=== PATIENT | female | born 1955 | race Caucasian/White ===

== ENCOUNTER 2022-10-29 11:17 | Day surgery (SDC) | payer MEDICARE, OTHER ==
[2022-10-29] VITALS (7 sets, daily range): BP systolic 154–169; BP diastolic 78–102
[~2022-10-29] VITALS: Ht 167.6 cm; Wt 73.2 kg
[2022-10-29] MEDS ORDERED: ASPI-611 PO (11:53)
[2022-10-29] MEDS ORDERED: ATEN50TA8 PO (11:53)
[2022-10-29] MEDS ORDERED: ROSU10TA2 PO (11:53)
[2022-10-29] MEDS ORDERED: LOSA25TA96 PO (11:53)
[2022-10-29 11:58] LABS: BASOPHILS % (AUTO) 0.3 % (0-1); EOSINOPHILS % (AUTO) 0.6 % (0-6); HEMATOCRIT 36.2 % (35.0-45.0); HEMOGLOBIN 12.4 g/dl (12.0-16.0); LYMPHOCYTES # (AUTO) 1.4 X10'3 (1.1-4.8); LYMPHOCYTES % (AUTO) 21.9 % (21-51); MEAN CORPUSCULAR HEMOGLOBIN 33.2 PG (27.0-31.0); MEAN CORPUSCULAR HGB CONC 34.4 g/dL (33.0-36.5); MEAN CORPUSCULAR VOLUME 96.4 FL (78-98); MEAN PLATELET VOLUME 8.2 FL (7.4-10.4); MONOCYTES # (AUTO) 0.4 X10'3 (0-0.9); MONOCYTES % (AUTO) 7.2 % (2-12); NEUTROPHILS # (AUTO) 4.3 X10'3 (1.8-7.7); PLATELET COUNT 158 X10'3 (140-440); RED BLOOD COUNT 3.75 X10'6 (4.20-5.60); RED CELL DISTRIBUTION WIDTH 13.3 % (11.5-14.5); WHITE BLOOD COUNT 6.2 X10'3 (4.5-11.0)
[2022-10-29] MEDS ORDERED: fentaNYL/PF 50MCG/1 ML 2ML syringe ONE (12:31)
[2022-10-29] MEDS ORDERED: midazolam 1 mg/ML 2ml injection ONE (12:31)
[2022-10-29] MEDS ORDERED: heparin sodium, porcine/PF 100unit/ml 5ML syringe ONE (12:31)
== END 2022-10-29 14:50 | disposition home or self-care (01) ==
LOC: SSTAY O 11:17
PROVIDERS: ATTEND Radiology Diagnostic Radiology
DX: C50.211 Malignant neoplasm of upper-inner quadrant of right female breast (principal); I10 Essential (primary) hypertension; E78.00 Pure hypercholesterolemia, unspecified; I25.10 Atherosclerotic heart disease of native coronary artery without angina pectoris; Z98.890 Other specified postprocedural states; Z95.5 Presence of coronary angioplasty implant and graft; Z79.82 Long term (current) use of aspirin; Z79.899 Other long term (current) drug therapy; Z88.8 Allergy status to other drugs, medicaments and biological substances; Z87.891 Personal history of nicotine dependence
CPT/HCPCS: 36415; 36561; 76937; 77001; 85025; 85610; 99152; 99153; C1769; C1788; C1894; J1642; J2250; J3010; J7030; A4620

== ENCOUNTER 2024-09-18 23:29 | Inpatient (IN) | payer MEDICARE, OTHER ==
[~2024-09-18] VITALS: Ht 167.6 cm; Wt 68.9 kg
[~2024-09-18 23:29] MED LIST: ASPI-611 PO; ATEN50TA8 PO; LOSA-415 PO; ROSU10TA2 PO
[2024-09-19] VITALS (14 sets, daily range): BP systolic 101–145; BP diastolic 63–83; PULSE 59–76; RESP 13–19; TEMP 97.4–98.4; O2SAT 93–96
[2024-09-19] MEDS: MESSAGE TO NURSING IV ONE ×3 (00:30→10:17)
[2024-09-19] MEDS: heparin 25,000 UNIT/250ml bag 250 ML IV PRN (00:38)
[2024-09-19] MEDS ORDERED: nitroGLYCERIN 0.4mg SUBLingual tab SL PRN ×2 (01:20→02:40)
[2024-09-19] MEDS: nitroGLYCERIN 0.4mg SUBLingual tab SL ONE (01:23)
[2024-09-19] MEDS ORDERED: magnesium Cl slow-release 64mg tablet PO PRN (02:30)
[2024-09-19] MEDS ORDERED: potassium Cl 20 mEq SR tablet PO PRN ×3 (02:30→19:00)
[2024-09-19] MEDS ORDERED: magnesium hydroxide 30ml (MOM) UD suspension PO PRN (02:30)
[2024-09-19] MEDS ORDERED: potassium Cl 40MEQ/1/2NS 520ml 520 ML IV PRN ×2 (02:30→19:00)
[2024-09-19] MEDS ORDERED: normal saline 1000ml 1,000 ML IV SCH (02:30)
[2024-09-19] MEDS ORDERED: magnesium sulf-water 4G/100mL 100 ML IV PRN ×2 (02:30→19:00)
[2024-09-19] MEDS ORDERED: acetaminophen 325mg tablet PO PRN (02:30)
[2024-09-19] MEDS ORDERED: morphine 2 MG/ML inj. syringe IV PRN ×2 (02:30)
[2024-09-19] MEDS ORDERED: mag hydrox/Alum hydrox/simeth 30ml oral suspension PO PRN (02:30)
[2024-09-19] MEDS ORDERED: magnesium sulf-water 2g/50mL 50 ML IV PRN ×2 (02:30→19:00)
[2024-09-19] MEDS ORDERED: ondansetron/PF 4mg/2ml inj IV PRN ×2 (02:30→18:20)
[2024-09-19 03:03] LABS: BASOPHILS % (AUTO) 0.3 % (0-1); EOSINOPHILS % (AUTO) 0.6 % (0-6); HEMATOCRIT 34.2 % (35.0-45.0); HEMOGLOBIN 12.1 g/dl (12.0-16.0); LYMPHOCYTES # (AUTO) 1.5 X10'3 (1.1-4.8); LYMPHOCYTES % (AUTO) 24.7 % (21-51); MEAN CORPUSCULAR HEMOGLOBIN 38.2 PG (27.0-31.0); MEAN CORPUSCULAR HGB CONC 35.5 g/dL (33.0-36.5); MEAN CORPUSCULAR VOLUME 107.6 FL (78-98); MEAN PLATELET VOLUME 8.7 FL (7.4-10.4); MONOCYTES # (AUTO) 0.6 X10'3 (0-0.9); MONOCYTES % (AUTO) 9.7 % (2-12); NEUTROPHILS # (AUTO) 3.8 X10'3 (1.8-7.7); NEUTROPHILS % (AUTO) 64.7 % (42-75); PLATELET COUNT 136 X10'3 (140-440); RED BLOOD COUNT 3.17 X10'6 (4.20-5.60); RED CELL DISTRIBUTION WIDTH 13.4 % (11.5-14.5); WHITE BLOOD COUNT 5.9 X10'3 (4.5-11.0)
[2024-09-19 03:11] LABS: INR 1.1 INR
[2024-09-19 03:24] LABS: ALANINE AMINOTRANSFERASE 34 U/L (12-78); ALBUMIN 3.6 G/DL (3.4-5.0); ALBUMIN/GLOBULIN RATIO 1.2 (1.1-1.5); ALKALINE PHOSPHATASE 108 IU/L (46-116); ANION GAP 6 (8-16); ASPARTATE AMINO TRANSFERASE 92 U/L (10-37); BILIRUBIN,TOTAL 0.7 MG/DL (0.1-1.0); BLOOD UREA NITROGEN 5 MG/DL (7-18); BUN/CREATININE RATIO 6.5 (10.0-20.0); CALCIUM 8.3 MG/DL (8.5-10.1); CHLORIDE 108 MMOL/L (99-107); CREATININE 0.77 MG/DL (0.40-0.90); GLUCOSE 114 MG/DL (70-104); POTASSIUM 3.6 MMOL/L (3.5-5.1); SODIUM 143 MMOL/L (135-145); TOTAL CARBON DIOXIDE 28.6 MMOL/L (24-32); TOTAL PROTEIN 6.5 G/DL (6.4-8.2); eCRCL 66 ML/MIN; eGFR 75 ML/MIN
[2024-09-19 03:25] LABS: CHOL/HDL RATIO 3.7 (0.00-4.99); CHOLESTEROL 331 MG/DL (0-200); HDL CHOLESTEROL 89 MG/DL (35-60); LDL CHOLESTEROL 203 MG/DL (50-100); MAGNESIUM 1.9 MG/DL (1.5-2.4); PHOSPHORUS 3.6 MG/DL (2.3-4.5); PRO BRAIN NATRIURETIC PEPTIDE 1500 PG/ML (0-125); THYROID STIMULATING HORMONE 0.83 ulU/ml (0.34-4.50); TRIGLYCERIDES 160 MG/DL (20-135)
[2024-09-19 03:28] LABS: HEMOGLOBIN A1C 5.2 % (4.5-6.2)
[2024-09-19] MEDS ORDERED: ANAS1TAB10 PO (04:21)
[2024-09-19] MEDS ORDERED: ABEM100T PO (04:21)
[2024-09-19 04:33] LABS: PROTHROMBIN TIME 10.9 SECONDS (9.0-12.0)
[2024-09-19 04:47] LABS: APTT 101 SECONDS (22-32)
[2024-09-19] MEDS ORDERED: atorvastatin 20mg tablet PO SCH (08:00)
[2024-09-19] MEDS: K and/or MAG REPLACEMENT MC SCH (08:00)
[2024-09-19] MEDS: aspirin 81mg, enteric-coated 1 TAB TABLET.DR PO SCH (08:00)
[2024-09-19] MEDS: docusate sod 100mg capsule PO SCH (08:00)
[2024-09-19] MEDS: heparin 10,000 units/1 ML INJ IV PRN (10:12)
[2024-09-19] MEDS: ezetimibe 10mg tablet PO SCH (10:26)
[2024-09-19] MEDS: atenolol 50mg tablet PO SCH (10:29)
[2024-09-19] MEDS ORDERED: heparin 25,000 UNIT/250ml bag 250 ML IV PRN (10:51)
[2024-09-19] MEDS: ABEMACICLIB 100 MG PO SCH (13:18)
[2024-09-19] MEDS ORDERED: LIDOcaine 1% 30ml preserv. free vial ONE (16:13)
[2024-09-19] MEDS ORDERED: verapamil 2.5 mg/ml inj IV ONE (16:13)
[2024-09-19] MEDS ORDERED: fentaNYL/PF 50MCG/1 ML 2ML syringe ONE (16:14)
[2024-09-19] MEDS ORDERED: iohexol 350MG/ML 100ml bottle IV ONE (16:14)
[2024-09-19] MEDS ORDERED: heparin 1,000unit/ml 10ml vial 10 ML ONE (16:14)
[2024-09-19] MEDS ORDERED: midazolam 1 mg/ML 2ml injection ONE (16:14)
[2024-09-19] MEDS ORDERED: nitroGLYCERIN 500mcg/5mL D5W 5 ML IV ONE (16:20)
[2024-09-19] MEDS ORDERED: OXAZEpam 15mg capsule PO PRN (18:20)
[2024-09-19] MEDS ORDERED: HYDROcodone/acetaminophen 10/325mg tab PO PRN (18:20)
[2024-09-19] MEDS ORDERED: proCHLORperazine 10 MG/2 ml inj IV PRN (18:20)
[2024-09-19] MEDS ORDERED: HYDROcodone/acetaminophen 5mg/325mg tablet PO PRN (18:20)
[2024-09-19] MEDS ORDERED: potassium Cl 20mEq/100mL bag 100 ML IV PRN (19:00)
[2024-09-19] MEDS ORDERED: potassium Cl 40MEQ/270ML bag 250 ML IV PRN (19:00)
[2024-09-19] MEDS: MESSAGE TO NURSING PO ONE ×4 (19:00)
[2024-09-19] MEDS ORDERED: potassium CL 10mEq/100ml bag 100 ML IV PRN (19:00)
[2024-09-19 20:37] LABS: INR 1.1 INR
[2024-09-19 20:50] LABS: APTT 71 SECONDS (22-32)
[2024-09-20] VITALS (28 sets, daily range): BP systolic 95–135; BP diastolic 45–83; PULSE 63–94; RESP 12–19; TEMP 98.8; O2SAT 92–100
[2024-09-20 00:05] LABS: ABG BASE EXCESS 3.5 mmol/L (-2.0-3.0); ABG HCO3 27.2 mmol/L (21.0-28.0); ABG OXYGEN SATURATION 95.4 % (94.0-98.0); ABG PCO2 (T) 38.3 mmHg (32.0-45.0); ABG PO2 (T) 79.4 mmHg (83.0-108.0); ALLEN'S TEST POSITIVE; FCOHb 0.3 % (0.5-1.5); FHHb 4.6 % (0.0-5.0); FMetHb 0.3 % (0.0-1.5); FO2Hb 94.8 % (94.0-98.0); MODE ROOM AIR; TOTAL HEMOGLOBIN 12.5 G/dl (12.0-16.0)
[2024-09-20] MEDS: mupirocin 2% nasal ointment 1gm UD NS ONE ×2 (05:19→07:08)
[2024-09-20 05:23] LABS: BASOPHILS % (AUTO) 0.6 % (0-1); EOSINOPHILS % (AUTO) 0.5 % (0-6); HEMATOCRIT 35.5 % (35.0-45.0); HEMOGLOBIN 12.4 g/dl (12.0-16.0); LYMPHOCYTES # (AUTO) 1.3 X10'3 (1.1-4.8); LYMPHOCYTES % (AUTO) 25.9 % (21-51); MEAN CORPUSCULAR HEMOGLOBIN 37.6 PG (27.0-31.0); MEAN CORPUSCULAR VOLUME 107.3 FL (78-98); MEAN PLATELET VOLUME 8.3 FL (7.4-10.4); MONOCYTES # (AUTO) 0.6 X10'3 (0-0.9); MONOCYTES % (AUTO) 12.5 % (2-12); NEUTROPHILS # (AUTO) 3.1 X10'3 (1.8-7.7); NEUTROPHILS % (AUTO) 60.5 % (42-75); PLATELET COUNT 136 X10'3 (140-440); RED BLOOD COUNT 3.31 X10'6 (4.20-5.60); RED CELL DISTRIBUTION WIDTH 13.5 % (11.5-14.5); WHITE BLOOD COUNT 5.1 X10'3 (4.5-11.0)
[2024-09-20 05:39] LABS: ALANINE AMINOTRANSFERASE 35 U/L (12-78); ALBUMIN 3.4 G/DL (3.4-5.0); ALBUMIN/GLOBULIN RATIO 1.1 (1.1-1.5); ALKALINE PHOSPHATASE 107 IU/L (46-116); ANION GAP 12 (8-16); ASPARTATE AMINO TRANSFERASE 91 U/L (10-37); BILIRUBIN,TOTAL 0.9 MG/DL (0.1-1.0); BLOOD UREA NITROGEN 9 MG/DL (7-18); BUN/CREATININE RATIO 12.5 (10.0-20.0); CALCIUM 9.3 MG/DL (8.5-10.1); CHLORIDE 104 MMOL/L (99-107); CREATININE 0.72 MG/DL (0.40-0.90); GLUCOSE 109 MG/DL (70-104); MAGNESIUM 1.8 MG/DL (1.5-2.4); PHOSPHORUS 3.4 MG/DL (2.3-4.5); SODIUM 141 MMOL/L (135-145); TOTAL CARBON DIOXIDE 25.1 MMOL/L (24-32); TOTAL PROTEIN 6.5 G/DL (6.4-8.2); eCRCL 71 ML/MIN; eGFR 81 ML/MIN
[2024-09-20 06:03] LABS: POTASSIUM 3.5 MMOL/L (3.5-5.1)
[2024-09-20] MEDS ORDERED: epiNEPHrine 1 mg/ml inj ONE (06:52)
[2024-09-20] MEDS ORDERED: vancomycin 1,000mg inj ONE (06:52)
[2024-09-20] MEDS ORDERED: ceFAZolin 1000mg inj ONE (06:52)
[2024-09-20] MEDS ORDERED: BUPIVAcaine 0.5% inj/PF 30 ML ONE (06:53)
[2024-09-20] MEDS ORDERED: LORazepam 2 mg/ml vial ONE (07:06)
[2024-09-20] MEDS: atenolol 50mg tablet PO SCH (07:09)
[2024-09-20] MEDS: vancomycin/NS 1 GM ADD-VANTAGE 250 ML IV ONE (07:30)
[2024-09-20] MEDS: Insulin Reg/NS 100units/100mL 100 ML IV SCH ×2 (07:45→18:16)
[2024-09-20] MEDS ORDERED: dextrose 50%-water 50ml dispensing syringe IV PRN ×2 (07:45→10:30)
[2024-09-20] MEDS ORDERED: insulin glargine (Lantus) pen - multi-dose SQ PRN ×2 (07:45→10:30)
[2024-09-20] MEDS: ringers solution, lacted 1,000 ML IV ONE (07:50)
[2024-09-20] MEDS ORDERED: albuterol 2.5 MG/3 ML nebule NEB PRN (07:50)
[2024-09-20] MEDS ORDERED: isoflurane 100ml inhalation liquid IH ONE (07:52)
[2024-09-20] MEDS ORDERED: midazolam 1 mg/ML 2ml injection ONE (07:57)
[2024-09-20] MEDS ORDERED: SUfentanil 50mcg/ml 1ml amp IV ONE (07:59)
[2024-09-20] MEDS ORDERED: non-formulary drug (Aspirin (Aspir 81) 1 TAB) PO SCH (08:00)
[2024-09-20] MEDS: ceFAZolin 2gm in dextrose, iso 50 ML IV ONE (08:00)
[2024-09-20] MEDS ORDERED: propofol inj 20 ML IV ONE (08:11)
[2024-09-20] MEDS ORDERED: LIDOcaine 2% (20mg/ml) 5ml vial ONE (08:11)
[2024-09-20 08:34] LABS: ABG BASE EXCESS -0.1 mmol/L (-2.0-3.0); ABG HCO3 22.4 mmol/L (21.0-28.0); ABG OXYGEN SATURATION 99.2 % (94.0-98.0); ABG PCO2 29.6 mmHg (32.0-45.0); ABG PH 7.497 (7.350-7.450); ABG PO2 254.2 mmHg (83.0-108.0); CL (ABG) 103 mmol/L (98-107); FCOHb 0.3 % (0.5-1.5); FHHb 0.8 % (0.0-5.0); FO2Hb 98.9 % (94.0-98.0); GLUCOSE (ABG) 94 mg/dl (65-95); IONIZED CA (ABG) 1.17 mmol/L (1.15-1.33); K (ABG) 3.4 mmol/L (3.40-4.50); TOTAL HEMOGLOBIN 10.8 G/dl (12.0-16.0)
[2024-09-20 09:16] LABS: ABG BASE EXCESS 3.4 mmol/L (-2.0-3.0); ABG HCO3 26.7 mmol/L (21.0-28.0); ABG OXYGEN SATURATION 99.4 % (94.0-98.0); ABG PCO2 34.9 mmHg (32.0-45.0); ABG PH 7.502 (7.350-7.450); CL (ABG) 97 mmol/L (98-107); FCOHb 0.1 % (0.5-1.5); FHHb 0.6 % (0.0-5.0); FMetHb 0.1 % (0.0-1.5); FO2Hb 99.2 % (94.0-98.0); GLUCOSE (ABG) 95 mg/dl (65-95); IONIZED CA (ABG) 0.91 mmol/L (1.15-1.33); K (ABG) 3.6 mmol/L (3.40-4.50); TOTAL HEMOGLOBIN 7.3 G/dl (12.0-16.0)
[2024-09-20] MEDS: MESSAGE TO NURSING PO ONE (09:32)
[2024-09-20] MEDS: ceFAZolin 1000mg inj IR ONE (09:41)
[2024-09-20 09:46] LABS: ABG BASE EXCESS 2.3 mmol/L (-2.0-3.0); ABG HCO3 26.4 mmol/L (21.0-28.0); ABG OXYGEN SATURATION 99.3 % (94.0-98.0); ABG PCO2 38.9 mmHg (32.0-45.0); CL (ABG) 100 mmol/L (98-107); FCOHb 0.3 % (0.5-1.5); FHHb 0.7 % (0.0-5.0); GLUCOSE (ABG) 124 mg/dl (65-95); IONIZED CA (ABG) 1.05 mmol/L (1.15-1.33); K (ABG) 3.8 mmol/L (3.40-4.50); TOTAL HEMOGLOBIN 8.4 G/dl (12.0-16.0)
[2024-09-20 10:21] LABS: ABG BASE EXCESS -2.1 mmol/L (-2.0-3.0); ABG OXYGEN SATURATION 99.2 % (94.0-98.0); ABG PCO2 34.7 mmHg (32.0-45.0); ABG PO2 247.2 mmHg (83.0-108.0); CL (ABG) 101 mmol/L (98-107); FCOHb 0.3 % (0.5-1.5); FHHb 0.8 % (0.0-5.0); FO2Hb 98.9 % (94.0-98.0); GLUCOSE (ABG) 128 mg/dl (65-95); IONIZED CA (ABG) 1.06 mmol/L (1.15-1.33); K (ABG) 3.6 mmol/L (3.40-4.50); TOTAL HEMOGLOBIN 8.4 G/dl (12.0-16.0)
[2024-09-20] MEDS ORDERED: metoclopramide 5 mg/ml inj IV PRN (10:30)
[2024-09-20] MEDS ORDERED: niCARDipine-NS 40mg/200ml IVPB 200 ML IV PRN (10:30)
[2024-09-20] MEDS ORDERED: acetaminophen 325mg tablet PO PRN ×2 (10:30)
[2024-09-20] MEDS ORDERED: mineral oil 133ml enema RC PRN (10:30)
[2024-09-20] MEDS ORDERED: magnesium hydroxide 30ml (MOM) UD suspension PO PRN (10:30)
[2024-09-20] MEDS ORDERED: bisacodyl 10mg suppository rectal RC PRN (10:30)
[2024-09-20] MEDS: nitroGLYCERIN-Tridil 50MG/D5W 250 ML IV SCH (10:30)
[2024-09-20] MEDS ORDERED: sodium phosphate inj. 15 MMOL in dextrose 5%-water 250 ML IV PRN (10:30)
[2024-09-20] MEDS ORDERED: sodium phosphate inj. 30 MMOL in dextrose 5%-water 250 ML IV PRN (10:30)
[2024-09-20] MEDS ORDERED: potassium Cl 40MEQ/1/2NS 520ml 520 ML IV PRN (10:30)
[2024-09-20] MEDS ORDERED: potassium Cl 20 mEq SR tablet PO PRN (10:30)
[2024-09-20] MEDS ORDERED: potassium CL 10mEq/100ml bag 100 ML IV PRN (10:30)
[2024-09-20] MEDS ORDERED: Neutra Phos packet PO PRN (10:30)
[2024-09-20] MEDS ORDERED: morphine 4 MG/ML inj SYRINge ONE (10:44)
[2024-09-20 11:14] LABS: BASOPHILS % (AUTO) 0.4 % (0-1); EOSINOPHILS % (AUTO) 0.3 % (0-6); HEMATOCRIT 24.9 % (35.0-45.0); HEMOGLOBIN 8.8 g/dl (12.0-16.0); LYMPHOCYTES # (AUTO) 0.8 X10'3 (1.1-4.8); LYMPHOCYTES % (AUTO) 20.3 % (21-51); MEAN CORPUSCULAR HEMOGLOBIN 37.7 PG (27.0-31.0); MEAN CORPUSCULAR HGB CONC 35.4 g/dL (33.0-36.5); MEAN CORPUSCULAR VOLUME 106.5 FL (78-98); MEAN PLATELET VOLUME 7.8 FL (7.4-10.4); MONOCYTES # (AUTO) 0.3 X10'3 (0-0.9); MONOCYTES % (AUTO) 6.6 % (2-12); NEUTROPHILS # (AUTO) 2.8 X10'3 (1.8-7.7); NEUTROPHILS % (AUTO) 72.4 % (42-75); PLATELET COUNT 68 X10'3 (140-440); RED BLOOD COUNT 2.34 X10'6 (4.20-5.60); RED CELL DISTRIBUTION WIDTH 13.3 % (11.5-14.5); WHITE BLOOD COUNT 3.9 X10'3 (4.5-11.0)
[2024-09-20] MEDS: albumin (Human) 5% 250ml 250 ML IV PRN (11:25)
[2024-09-20 11:34] LABS: APTT 26 SECONDS (22-32); INR 1.2 INR; PROTHROMBIN TIME 12.3 SECONDS (9.0-12.0)
[2024-09-20 11:36] LABS: ALANINE AMINOTRANSFERASE 25 U/L (12-78); ALBUMIN 2.7 G/DL (3.4-5.0); ALBUMIN/GLOBULIN RATIO 1.5 (1.1-1.5); ALKALINE PHOSPHATASE 69 IU/L (46-116); ANION GAP 7 (8-16); ASPARTATE AMINO TRANSFERASE 67 U/L (10-37); BLOOD UREA NITROGEN 7 MG/DL (7-18); BUN/CREATININE RATIO 12.1 (10.0-20.0); CALCIUM 7.5 MG/DL (8.5-10.1); CHLORIDE 107 MMOL/L (99-107); CREATININE 0.58 MG/DL (0.40-0.90); GLUCOSE 137 MG/DL (70-104); MAGNESIUM 1.5 MG/DL (1.5-2.4); PHOSPHORUS 2.8 MG/DL (2.3-4.5); POTASSIUM 3.7 MMOL/L (3.5-5.1); SODIUM 141 MMOL/L (135-145); TOTAL CARBON DIOXIDE 26.6 MMOL/L (24-32); TOTAL PROTEIN 4.5 G/DL (6.4-8.2); eCRCL 88 ML/MIN; eGFR > 90 ML/MIN
[2024-09-20 11:40] LABS: ABG BASE EXCESS 0.9 mmol/L (-2.0-3.0); ABG HCO3 24.7 mmol/L (21.0-28.0); ABG OXYGEN SATURATION 99.4 % (94.0-98.0); ABG PCO2 (T) 33.9 mmHg (32.0-45.0); ABG PH (T) 7.475 (7.350-7.450); ABG PO2 (T) 257.8 mmHg (83.0-108.0); FCOHb 0.2 % (0.5-1.5); FHHb 0.6 % (0.0-5.0); FMetHb 0.3 % (0.0-1.5); FO2Hb 98.9 % (94.0-98.0); MODE VENT - SIMV; PATIENT TEMPERATURE 35.7; PEEP 5 cm H2O; RESPIRATORY RATE 12 b/min; TIDAL VOLUME 500 mL; TOTAL HEMOGLOBIN 9.5 G/dl (12.0-16.0)
[2024-09-20] MEDS: potassium Cl 20mEq/100mL bag 100 ML IV PRN (11:57)
[2024-09-20] MEDS: magnesium sulf-water 2g/50mL 50 ML IV PRN (11:57)
[2024-09-20] MEDS: sodium chloride 0.45% 1,000 ML IV SCH (12:32)
[2024-09-20] MEDS: potassium Cl 40MEQ/270ML bag 250 ML IV PRN (13:03)
[2024-09-20] MEDS: magnesium sulf-water 4G/100mL 100 ML IV PRN (13:22)
[2024-09-20] MEDS: ceFAZolin/D5W- 1GM premix 50 ML IV SCH (16:04)
[2024-09-20 16:54] LABS: BASOPHILS % (AUTO) 0 % (0-1); EOSINOPHILS % (AUTO) 0 % (0-6); HEMOGLOBIN 7.5 g/dl (12.0-16.0); LYMPHOCYTES # (AUTO) 0.4 X10'3 (1.1-4.8); LYMPHOCYTES % (AUTO) 8.4 % (21-51); MEAN CORPUSCULAR HEMOGLOBIN 37.2 PG (27.0-31.0); MEAN CORPUSCULAR HGB CONC 34.5 g/dL (33.0-36.5); MEAN CORPUSCULAR VOLUME 107.9 FL (78-98); MEAN PLATELET VOLUME 7.9 FL (7.4-10.4); MONOCYTES # (AUTO) 0.2 X10'3 (0-0.9); MONOCYTES % (AUTO) 3.9 % (2-12); NEUTROPHILS # (AUTO) 3.8 X10'3 (1.8-7.7); NEUTROPHILS % (AUTO) 87.7 % (42-75); PLATELET COUNT 68 X10'3 (140-440); RED BLOOD COUNT 2.02 X10'6 (4.20-5.60); RED CELL DISTRIBUTION WIDTH 13.4 % (11.5-14.5); WHITE BLOOD COUNT 4.4 X10'3 (4.5-11.0)
[2024-09-20 17:00] LABS: HEMATOCRIT 21.8 % (35.0-45.0)
[2024-09-20 17:20] LABS: ALBUMIN 3.4 G/DL (3.4-5.0); ANION GAP 7 (8-16); BLOOD UREA NITROGEN 6 MG/DL (7-18); BUN/CREATININE RATIO 9.2 (10.0-20.0); CALCIUM 7.7 MG/DL (8.5-10.1); CHLORIDE 109 MMOL/L (99-107); CREATININE 0.65 MG/DL (0.40-0.90); GLUCOSE 181 MG/DL (70-104); MAGNESIUM 3.4 MG/DL (1.5-2.4); PHOSPHORUS 3.2 MG/DL (2.3-4.5); POTASSIUM 4.2 MMOL/L (3.5-5.1); SODIUM 141 MMOL/L (135-145); TOTAL CARBON DIOXIDE 25.3 MMOL/L (24-32); eCRCL 79 ML/MIN; eGFR > 90 ML/MIN
[2024-09-20] MEDS ORDERED: VANCOMYCIN 1GM 200ML H20 (PEG) 200 ML IV SCH (20:00)
[2024-09-20 20:45] LABS: BASOPHILS % (AUTO) 0.1 % (0-1); EOSINOPHILS % (AUTO) 0 % (0-6); LYMPHOCYTES # (AUTO) 0.4 X10'3 (1.1-4.8); MONOCYTES # (AUTO) 0.2 X10'3 (0-0.9); RED BLOOD COUNT 2.03 X10'6 (4.20-5.60); RED CELL DISTRIBUTION WIDTH 13.8 % (11.5-14.5)
[2024-09-20 20:47] LABS: HEMOGLOBIN 7.6 g/dl (12.0-16.0); LYMPHOCYTES % (AUTO) 8.3 % (21-51); MEAN CORPUSCULAR HEMOGLOBIN 37.5 PG (27.0-31.0); MEAN CORPUSCULAR HGB CONC 34.9 g/dL (33.0-36.5); MEAN CORPUSCULAR VOLUME 107.3 FL (78-98); MEAN PLATELET VOLUME 7.7 FL (7.4-10.4); MONOCYTES % (AUTO) 4.2 % (2-12); NEUTROPHILS # (AUTO) 4.2 X10'3 (1.8-7.7); NEUTROPHILS % (AUTO) 87.4 % (42-75); PLATELET COUNT 68 X10'3 (140-440); WHITE BLOOD COUNT 4.8 X10'3 (4.5-11.0)
[2024-09-20 20:54] LABS: HEMATOCRIT 21.8 % (35.0-45.0)
[2024-09-20] MEDS: mupirocin 2% nasal ointment 1gm UD NS SCH (20:57)
[2024-09-20] MEDS: sennosides/docusate sodium tablet PO SCH (20:57)
[2024-09-20 20:58] LABS: ALANINE AMINOTRANSFERASE 24 U/L (12-78); ALBUMIN 3.4 G/DL (3.4-5.0); ALBUMIN/GLOBULIN RATIO 1.8 (1.1-1.5); ALKALINE PHOSPHATASE 61 IU/L (46-116); ANION GAP 5 (8-16); ASPARTATE AMINO TRANSFERASE 63 U/L (10-37); BILIRUBIN,TOTAL 0.8 MG/DL (0.1-1.0); BLOOD UREA NITROGEN 7 MG/DL (7-18); BUN/CREATININE RATIO 9.6 (10.0-20.0); CALCIUM 7.8 MG/DL (8.5-10.1); CHLORIDE 110 MMOL/L (99-107); CREATININE 0.73 MG/DL (0.40-0.90); GLUCOSE 138 MG/DL (70-104); POTASSIUM 4.3 MMOL/L (3.5-5.1); SODIUM 141 MMOL/L (135-145); TOTAL CARBON DIOXIDE 25.9 MMOL/L (24-32); TOTAL PROTEIN 5.3 G/DL (6.4-8.2); eCRCL 70 ML/MIN; eGFR 80 ML/MIN
[2024-09-20] MEDS ORDERED: atorvastatin 10mg tablet PO SCH (21:00)
[2024-09-20 21:20] LABS: ABG BASE EXCESS -1.6 mmol/L (-2.0-3.0); ABG HCO3 21.4 mmol/L (21.0-28.0); ABG OXYGEN SATURATION 95.7 % (94.0-98.0); ABG PCO2 (T) 30.4 mmHg (32.0-45.0); ABG PO2 (T) 90.3 mmHg (83.0-108.0); FCOHb 0.3 % (0.5-1.5); FHHb 4.3 % (0.0-5.0); FMetHb 0.3 % (0.0-1.5); FO2Hb 95.1 % (94.0-98.0); MODE spont; PEEP 5 cm H2O; TOTAL HEMOGLOBIN 7.9 G/dl (12.0-16.0)
[2024-09-20] MEDS: morphine 2 MG/ML inj. syringe IV PRN (21:22)
[2024-09-20] MEDS: vancomycin/NS 1 GM ADD-VANTAGE 250 ML IV SCH (21:30)
[2024-09-20] MEDS: morphine 4 MG/ML inj SYRINge IV PRN (22:32)
[2024-09-21] VITALS (25 sets, daily range): BP systolic 88–120; BP diastolic 51–80; PULSE 74–96; RESP 12–26; O2SAT 93–99
[2024-09-21 05:04] LABS: BASOPHILS % (AUTO) 0 % (0-1); EOSINOPHILS % (AUTO) 0 % (0-6); HEMATOCRIT 22.8 % (35.0-45.0); LYMPHOCYTES # (AUTO) 0.8 X10'3 (1.1-4.8); LYMPHOCYTES % (AUTO) 9.3 % (21-51); MEAN CORPUSCULAR HEMOGLOBIN 37.8 PG (27.0-31.0); MEAN PLATELET VOLUME 7.8 FL (7.4-10.4); MONOCYTES # (AUTO) 0.7 X10'3 (0-0.9); MONOCYTES % (AUTO) 9.2 % (2-12); NEUTROPHILS # (AUTO) 6.6 X10'3 (1.8-7.7); NEUTROPHILS % (AUTO) 81.5 % (42-75); PLATELET COUNT 98 X10'3 (140-440); RED BLOOD COUNT 2.11 X10'6 (4.20-5.60); WHITE BLOOD COUNT 8.1 X10'3 (4.5-11.0)
[2024-09-21 05:19] LABS: ALANINE AMINOTRANSFERASE 27 U/L (12-78); ALBUMIN 3.4 G/DL (3.4-5.0); ALBUMIN/GLOBULIN RATIO 1.7 (1.1-1.5); ALKALINE PHOSPHATASE 63 IU/L (46-116); ANION GAP 7 (8-16); ASPARTATE AMINO TRANSFERASE 64 U/L (10-37); BILIRUBIN,TOTAL 0.8 MG/DL (0.1-1.0); BLOOD UREA NITROGEN 9 MG/DL (7-18); BUN/CREATININE RATIO 14.8 (10.0-20.0); CALCIUM 8.4 MG/DL (8.5-10.1); CHLORIDE 107 MMOL/L (99-107); CREATININE 0.61 MG/DL (0.40-0.90); GLUCOSE 139 MG/DL (70-104); MAGNESIUM 2.1 MG/DL (1.5-2.4); PHOSPHORUS 3.2 MG/DL (2.3-4.5); POTASSIUM 5.1 MMOL/L (3.5-5.1); SODIUM 139 MMOL/L (135-145); TOTAL CARBON DIOXIDE 25.1 MMOL/L (24-32); TOTAL PROTEIN 5.4 G/DL (6.4-8.2); eCRCL 84 ML/MIN; eGFR > 90 ML/MIN
[2024-09-21] MEDS: metoprolol tartrate 12.5mg (1/2 tablet) PO SCH (07:14)
[2024-09-21] MEDS: aspirin 81mg tab.chew PO SCH (07:37)
[2024-09-21] MEDS: HYDROcodone/acetaminophen 10/325mg tab PO PRN ×2 (08:10→13:34)
[2024-09-21] MEDS: LIDOcaine 5% patch TP SCH (10:48)
[2024-09-21] MEDS: albumin (human) 25% 100 ML IV solution IV ONE (16:21)
[2024-09-21] MEDS: ondansetron/PF 4mg/2ml inj IV PRN (17:44)
[2024-09-22] VITALS (27 sets, daily range): BP systolic 88–116; BP diastolic 53–73; PULSE 70–92; RESP 14–27; TEMP 97.3; O2SAT 90–98
[2024-09-22 02:19] LABS: BASOPHILS % (AUTO) 0.1 % (0-1); EOSINOPHILS % (AUTO) 0.1 % (0-6); HEMOGLOBIN 7.4 g/dl (12.0-16.0); LYMPHOCYTES # (AUTO) 0.7 X10'3 (1.1-4.8); LYMPHOCYTES % (AUTO) 11.5 % (21-51); MEAN CORPUSCULAR HEMOGLOBIN 38.1 PG (27.0-31.0); MEAN CORPUSCULAR HGB CONC 35.5 g/dL (33.0-36.5); MEAN CORPUSCULAR VOLUME 107.2 FL (78-98); MEAN PLATELET VOLUME 7.5 FL (7.4-10.4); MONOCYTES # (AUTO) 0.5 X10'3 (0-0.9); MONOCYTES % (AUTO) 7.3 % (2-12); NEUTROPHILS # (AUTO) 5.1 X10'3 (1.8-7.7); PLATELET COUNT 79 X10'3 (140-440); RED BLOOD COUNT 1.94 X10'6 (4.20-5.60); RED CELL DISTRIBUTION WIDTH 13.4 % (11.5-14.5); WHITE BLOOD COUNT 6.3 X10'3 (4.5-11.0)
[2024-09-22 02:23] LABS: HEMATOCRIT 20.8 % (35.0-45.0)
[2024-09-22 03:02] LABS: ALBUMIN 3.3 G/DL (3.4-5.0); ANION GAP 5 (8-16); BLOOD UREA NITROGEN 11 MG/DL (7-18); BUN/CREATININE RATIO 16.7 (10.0-20.0); CALCIUM 8.2 MG/DL (8.5-10.1); CHLORIDE 99 MMOL/L (99-107); CREATININE 0.66 MG/DL (0.40-0.90); GLUCOSE 135 MG/DL (70-104); MAGNESIUM 1.9 MG/DL (1.5-2.4); PHOSPHORUS 2.5 MG/DL (2.3-4.5); POTASSIUM 4.5 MMOL/L (3.5-5.1); SODIUM 132 MMOL/L (135-145); eCRCL 77 ML/MIN; eGFR 89 ML/MIN
[2024-09-22] MEDS: pantoprazole 40mg Tablet.DR PO SCH (08:09)
[2024-09-22 09:00] LABS: ABG PO2 384.7 mmHg (83.0-108.0)
[2024-09-22] MEDS ORDERED: potassium CL 10mEq/100ml bag 100 ML IV PRN ×2 (09:15→09:20)
[2024-09-22] MEDS ORDERED: potassium Cl 20mEq/100mL bag 100 ML IV PRN ×2 (09:15→09:20)
[2024-09-22] MEDS ORDERED: potassium Cl 40MEQ/270ML bag 250 ML IV PRN ×2 (09:15→09:20)
[2024-09-22] MEDS ORDERED: magnesium sulf-water 4G/100mL 100 ML IV PRN ×2 (09:15→09:20)
[2024-09-22] MEDS ORDERED: potassium Cl 20 mEq SR tablet PO PRN ×3 (09:15→09:20)
[2024-09-22] MEDS ORDERED: magnesium sulf-water 2g/50mL 50 ML IV PRN ×2 (09:15→09:20)
[2024-09-22] MEDS ORDERED: potassium Cl 40MEQ/1/2NS 520ml 520 ML IV PRN ×2 (09:15→09:20)
[2024-09-22] MEDS: furosemide 40mg/4ml inj IV ONE (11:26)
[2024-09-22] MEDS ORDERED: sodium bicarbonate 1meq/ml inj 150 ML in dextrose 5%-water 1,000 ML IV SCH (17:25)
[2024-09-22] MEDS: magnesium Cl slow-release 64mg tablet PO SCH ×2 (19:26→19:28)
[2024-09-23] VITALS (8 sets, daily range): BP systolic 89–119; BP diastolic 49–70; PULSE 74–94; RESP 13–20; TEMP 97.6–98.4; O2SAT 92–97
[2024-09-23 04:10] LABS: BASOPHILS % (AUTO) 0.1 % (0-1); EOSINOPHILS % (AUTO) 0.1 % (0-6); HEMATOCRIT 22.4 % (35.0-45.0); HEMOGLOBIN 7.8 g/dl (12.0-16.0); LYMPHOCYTES # (AUTO) 0.8 X10'3 (1.1-4.8); LYMPHOCYTES % (AUTO) 14.3 % (21-51); MEAN CORPUSCULAR HEMOGLOBIN 37.5 PG (27.0-31.0); MEAN CORPUSCULAR VOLUME 107.3 FL (78-98); MEAN PLATELET VOLUME 7.7 FL (7.4-10.4); MONOCYTES # (AUTO) 0.5 X10'3 (0-0.9); MONOCYTES % (AUTO) 9.5 % (2-12); NEUTROPHILS # (AUTO) 4.2 X10'3 (1.8-7.7); PLATELET COUNT 101 X10'3 (140-440); RED BLOOD COUNT 2.08 X10'6 (4.20-5.60); RED CELL DISTRIBUTION WIDTH 13.8 % (11.5-14.5); WHITE BLOOD COUNT 5.5 X10'3 (4.5-11.0)
[2024-09-23 04:18] LABS: ALBUMIN 3.2 G/DL (3.4-5.0); ANION GAP 3 (8-16); BLOOD UREA NITROGEN 11 MG/DL (7-18); BUN/CREATININE RATIO 15.1 (10.0-20.0); CALCIUM 8.2 MG/DL (8.5-10.1); CHLORIDE 102 MMOL/L (99-107); CREATININE 0.73 MG/DL (0.40-0.90); GLUCOSE 117 MG/DL (70-104); POTASSIUM 4.2 MMOL/L (3.5-5.1); SODIUM 138 MMOL/L (135-145); TOTAL CARBON DIOXIDE 33.4 MMOL/L (24-32); eCRCL 70 ML/MIN; eGFR 80 ML/MIN
[2024-09-23] MEDS ORDERED: ferrous sulfate 325mg tablet PO SCH (08:15)
[2024-09-23] MEDS: ferrous sulfate 325mg tablet PO SCH (08:53)
[2024-09-23] MEDS: furosemide 40mg/4ml inj IV ONE (08:56)
[2024-09-23] MEDS: folic acid 1mg tablet PO SCH (09:13)
[2024-09-23] MEDS: potassium Cl 20 mEq SR tablet PO PRN (16:52)
[2024-09-23] MEDS: heparin, porcine 5000 units/ml vial SQ SCH (19:56)
[2024-09-24 02:00] VITALS: BP 108/69; PULSE 81; RESP 16; TEMP 97.3; O2SAT 98
[2024-09-24 07:00] VITALS: BP 122/77; PULSE 76; RESP 23; TEMP 97.7; O2SAT 94
[2024-09-24 08:00] VITALS: RESP 13
[2024-09-24 08:27] LABS: BASOPHILS % (AUTO) 0.2 % (0-1); EOSINOPHILS % (AUTO) 0.4 % (0-6); HEMATOCRIT 24.5 % (35.0-45.0); HEMOGLOBIN 8.6 g/dl (12.0-16.0); LYMPHOCYTES # (AUTO) 1.1 X10'3 (1.1-4.8); LYMPHOCYTES % (AUTO) 22.3 % (21-51); MEAN CORPUSCULAR HEMOGLOBIN 37.6 PG (27.0-31.0); MEAN CORPUSCULAR HGB CONC 35.1 g/dL (33.0-36.5); MEAN CORPUSCULAR VOLUME 107.2 FL (78-98); MEAN PLATELET VOLUME 8.1 FL (7.4-10.4); MONOCYTES # (AUTO) 0.6 X10'3 (0-0.9); MONOCYTES % (AUTO) 12.7 % (2-12); NEUTROPHILS # (AUTO) 3.1 X10'3 (1.8-7.7); NEUTROPHILS % (AUTO) 64.4 % (42-75); PLATELET COUNT 137 X10'3 (140-440); RED BLOOD COUNT 2.29 X10'6 (4.20-5.60); RED CELL DISTRIBUTION WIDTH 13.8 % (11.5-14.5); WHITE BLOOD COUNT 4.8 X10'3 (4.5-11.0)
[2024-09-24 09:24] LABS: ALBUMIN 3.1 G/DL (3.4-5.0); ANION GAP 7 (8-16); BLOOD UREA NITROGEN 12 MG/DL (7-18); BUN/CREATININE RATIO 18.2 (10.0-20.0); CALCIUM 8.8 MG/DL (8.5-10.1); CHLORIDE 103 MMOL/L (99-107); CREATININE 0.66 MG/DL (0.40-0.90); GLUCOSE 110 MG/DL (70-104); MAGNESIUM 1.9 MG/DL (1.5-2.4); POTASSIUM 3.8 MMOL/L (3.5-5.1); SODIUM 139 MMOL/L (135-145); TOTAL CARBON DIOXIDE 28.8 MMOL/L (24-32); eCRCL 77 ML/MIN; eGFR 89 ML/MIN
[2024-09-24] MEDS ORDERED: FOLI1TAB27 PO (10:11)
[2024-09-24] MEDS ORDERED: FER325T PO (10:11)
[2024-09-24] MEDS ORDERED: LOP12.5T PO (10:11)
[2024-09-24] MEDS ORDERED: HYDR-3965 PO ×2 (10:11→10:54)
[2024-09-24] MEDS ORDERED: SENN-283 PO (10:11)
[2024-09-24] MEDS ORDERED: PANT40TA54 PO (10:11)
[2024-09-24] MEDS ORDERED: CLOP-32 PO (10:11)
[2024-09-24 11:00] VITALS: BP 97/49; PULSE 87; RESP 18; TEMP 97.6; O2SAT 94
[2024-09-24 13:52] VITALS: RESP 16
== END 2024-09-24 14:09 | disposition home or self-care (01) | DRG 234 ==
LOC: ER 23:29 → ED HOLD 09-19 02:32 → PCU 3S 09-19 04:30 → CICU 2S 09-20 10:02 → PCU 3S 09-22 23:04
PROVIDERS: ADMIT Internal Medicine Critical Care Medicine; ATTEND Internal Medicine
PROC: 4A023N7 Measurement of Cardiac Sampling and Pressure, Left Heart, Percutaneous Approach (ICD-10-PCS; 2024-09-19)
PROC: B2111ZZ Fluoroscopy of Multiple Coronary Arteries using Low Osmolar Contrast (ICD-10-PCS; 2024-09-19)
PROC: B2151ZZ Fluoroscopy of Left Heart using Low Osmolar Contrast (ICD-10-PCS; 2024-09-19)
PROC: 06BP4ZZ Excision of Right Saphenous Vein, Percutaneous Endoscopic Approach (ICD-10-PCS; 2024-09-20)
PROC: 02100Z9 Bypass Coronary Artery, One Artery from Left Internal Mammary, Open Approach (ICD-10-PCS; 2024-09-20)
PROC: 5A1221Z Performance of Cardiac Output, Continuous (ICD-10-PCS; 2024-09-20)
PROC: B24BZZ4 Ultrasonography of Heart with Aorta, Transesophageal (ICD-10-PCS; 2024-09-20)
PROC: 021109W Bypass Coronary Artery, Two Arteries from Aorta with Autologous Venous Tissue, Open Approach (ICD-10-PCS; principal; 2024-09-20 07:52)
DX: I21.4 Non-ST elevation (NSTEMI) myocardial infarction (principal); D62 Acute posthemorrhagic anemia; I10 Essential (primary) hypertension; E78.5 Hyperlipidemia, unspecified; C50.911 Malignant neoplasm of unspecified site of right female breast; G47.33 Obstructive sleep apnea (adult) (pediatric); Z79.82 Long term (current) use of aspirin; Z79.899 Other long term (current) drug therapy; I25.2 Old myocardial infarction; Z87.891 Personal history of nicotine dependence; Z88.8 Allergy status to other drugs, medicaments and biological substances
CPT/HCPCS: 36415; 36600; 71045; 80048; 80053; 80061; 82330; 82435; 82803; 82947; 82948; 83036; 83605; 83735; 83880; 84100; 84132; 84295; 84439; 84443; 84484; 85018; 85025; 85347; 85610; 85730; 86885; 86900; 86901; 86920; 87081; 93005; 93306; 93312; 93325; 93458; 93880; 93970; 94002; 94010; 94664; 94668; 94760; 96365; 97110; 97116; 97161; 97530; 99152; 99153; 99291; A4615; A4618; A6258; A6402; A6449; A7000; A7048; C1751; C1894; G0378; J0171; J0690; J1644; J1815; J1940; J2003; J2060; J2150; J2250; J2270; J2370; J2405; J2704; J2720; J2919; J3010; J3370; J3475; J3480; J3490; J7030; J7040; J7050; J7120; P9045; P9047; Q9967